=== PATIENT | female | born 1990 | race Caucasian/White ===

== ENCOUNTER 2018-04-11 19:31 | Emergency (ER) | payer OTHER ==
[2018-04-11] MEDS ORDERED: Butorphanol 2 MG/ML SDV IM ONE (19:58)
[2018-04-11] MEDS ORDERED: Promethazine 25 MG/ML SDV IM ONE (19:58)
--- NOTE | 2018-04-11 20:01 | EDM.PDOC ---
ED HPI GENERAL MEDICAL PROBLEM - General Chief Complaint: Headache Stated Complaint: Migraine [id number] Time Seen by Provider: 04/11/18 19:59 Source of Information: Reports: Patient History Limitations: Reports: No Limitations - History of Present Illness INITIAL COMMENTS - FREE TEXT/NARRATIVE: gives long h/o migraines usually Tx with PO Rx but this time not working. been very nauseous and head pounding. 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 - Physical Exam Exam: See Below Exam Limited By: No Limitations General Appearance: Alert, WD/WN, Mild Distress, Other (headache) Eye Exam: Bilateral Eye: PERRL (pupils ER @ 4mm) Ears: Hearing Grossly Normal Throat/Mouth: Normal Voice, No Airway Compromise Head Exam: Atraumatic Neck: Non-Tender, Full Range of Motion Respiratory/Chest: No Respiratory Distress Cardiovascular: Regular Rate, Rhythm GI/Abdominal: Soft, Non-Tender Neuro Exam (Abbreviated): Alert, Oriented, Normal Cognition, Normal Gait, No Motor/Sensory Deficits Psychiatric: Tearful Skin Exam: Warm, Dry, Normal Color Course - Vital Signs Last Recorded V/S: Last Vital Signs Temp 36.9 C 04/11/18 19:50 Pulse 81 04/11/18 19:50 Resp 16 04/11/18 19:50 BP 117/74 04/11/18 19:50 Pulse Ox 100 04/11/18 19:50 - Orders/Labs/Meds Meds: Medications Discontinued Medications Generic Name Dose Route Start Last Admin Trade Name Freq PRN Reason Stop Dose Admin Butorphanol Tartrate 2 mg 04/11/18 19:58 04/11/18 20:04 Stadol IM 04/11/18 19:59 2 mg ONETIME ONE Administration Promethazine HCl 25 mg 04/11/18 19:58 04/11/18 20:07 Phenergan IM 04/11/18 19:59 25 mg ONETIME ONE Administration Departure - Departure Time of Disposition: 20:35 Disposition: Home, Self-Care 01 Condition: Good Clinical Impression: Migraine - Discharge Information Instructions: Recurrent Migraine Headache, [id number] Forms: ED Department Discharge Additional Instructions: 1) rest as much as possible 2) avoid bright lights and loud noises 3) follow up at clinic or recheck as needed
== END 2018-04-11 20:38 | disposition home or self-care (01) ==
LOC: DL.ED 19:31
DX: G43.909 Migraine, unspecified, not intractable, without status migrainosus (principal); Z79.899 Other long term (current) drug therapy
CPT/HCPCS: 96372; 99283; J0595; J2550

== ENCOUNTER 2019-12-22 15:20 | Emergency (ER) | payer OTHER ==
[2019-12-22] MEDS ORDERED: Sodium Chloride 0.9% 1,000 ML IV ONE (15:44)
[2019-12-22] MEDS ORDERED: Ketorolac 30 MG/ML SDV IVPUSH ONE (15:44)
[2019-12-22] MEDS ORDERED: Metoclopramide 10 MG/2 ML SDV IVPUSH ONE (15:45)
--- NOTE | 2019-12-22 15:47 | EDM.PDOC ---
ED HPI GENERAL MEDICAL PROBLEM - General Chief Complaint: Headache Stated Complaint: migrane Time Seen by Provider: 12/22/19 15:40 Source of Information: Reports: Patient History Limitations: Reports: No Limitations - History of Present Illness INITIAL COMMENTS - FREE TEXT/NARRATIVE: This 29 yo female patient reports to the ED with a headache since about 1000 this morning. The patient has taken her migraine medications 2 times with no symptom relief. The patient reports she is feeling nauseated, but has not vomited at this time. 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(s) Forehead Pain Score (Numeric/FACES): 5 - Related Data Allergies Allergy/AdvReac Type Severity Reaction Status Date / Time No Known Allergies Allergy Verified 04/11/18 19:57 Home Meds: Home Meds Cetirizine [ZyrTEC] 10 mg PO DAILY 04/11/18 [History] Rizatriptan Benzoate [Rizatriptan] 10 mg PO DAILY 04/11/18 [History] Past Medical History - Past Health History Medical/Surgical History: Denies Medical/Surgical History Gastrointestinal History: Reports: None Genitourinary History: Reports: Other (See Below) Other Genitourinary History: genital warts Neurological History: Reports: Migraines Psychiatric History: Reports: Anxiety, Depression - Past Surgical History GI Surgical History: Reports: None Social & Family History - Family History Family Medical History: Noncontributory - Caffeine Use Caffeine Use: Reports: Coffee, Soda ED ROS GENERAL - Review of Systems Review Of Systems: Comprehensive ROS is negative, except as noted in HPI. - Physical Exam Exam: See Below Exam Limited By: No Limitations General Appearance: Alert, WD/WN, Moderate Distress, Thin Eye Exam: Bilateral Eye: EOMI, Normal Inspection, PERRL Ears: Normal External Exam, Normal Canal, Hearing Grossly Normal, Normal TMs Nose: Normal Inspection, Normal Mucosa, No Blood Throat/Mouth: Normal Inspection, Normal Lips, Normal Teeth, Normal Gums, Normal Oropharynx, Normal Voice, No Airway Compromise Head Exam: Atraumatic, Normocephalic Neck: Normal Inspection, Supple, Non-Tender, Full Range of Motion Respiratory/Chest: No Respiratory Distress, Lungs Clear, Normal Breath Sounds, No Accessory Muscle Use, Chest Non-Tender Cardiovascular: Normal Peripheral Pulses, Regular Rate, Rhythm, No Edema, No Gallop, No JVD, No Murmur, No Rub GI/Abdominal: Normal Bowel Sounds, Soft, Non-Tender, No Organomegaly, No Distention, No Abnormal Bruit, No Mass (Female) Exam: Deferred Rectal (Female) Exam: Deferred Neuro Exam (Abbreviated): Alert, Oriented, CN II-XII Intact, Normal Cognition, Normal Gait, Normal Reflexes, No Motor/Sensory Deficits Back Exam: Normal Inspection, Full Range of Motion, NT Extremities: Normal Inspection, Normal Range of Motion, Non-Tender, No Pedal Edema, Normal Capillary Refill Psychiatric: Normal Affect, Normal Mood Skin Exam: Warm, Dry, Intact, Normal Color, No Rash Course - Vital Signs Last Recorded V/S: Last Vital Signs Temp 36.7 C 12/22/19 15:25 Pulse 81 12/22/19 15:25 Resp 18 12/22/19 15:25 BP 121/90 12/22/19 15:25 Pulse Ox 99 12/22/19 15:25 - Orders/Labs/Meds Orders: Active Orders 24 hr Category Date Time Status Sodium Chloride 0.9% [Normal Saline] 1,000 ml Med 12/22/19 15:44 Active IV .BOLUS Medication Orders Sodium Chloride (Normal Saline) 1,000 mls @ 999 mls/hr IV .BOLUS ONE Stop: 12/22/19 16:44 Last Admin: 12/22/19 15:58 Dose: 999 mls/hr Meds: Medications Generic Name Dose Route Start Last Admin Trade Name Freq PRN Reason Stop Dose Admin Sodium Chloride 1,000 mls @ 999 mls/hr 12/22/19 15:44 12/22/19 15:58 Normal Saline IV 12/22/19 16:44 999 mls/hr .BOLUS ONE Administration Discontinued Medications Generic Name Dose Route Start Last Admin Trade Name Freq PRN Reason Stop Dose Admin Ketorolac Tromethamine 30 mg 12/22/19 15:44 12/22/19 16:02 Toradol IVPUSH 12/22/19 15:45 30 mg ONETIME ONE Administration Metoclopramide HCl 10 mg 12/22/19 15:45 12/22/19 15:59 Reglan IVPUSH 12/22/19 15:46 10 mg ONETIME ONE Administration Departure - Departure Time of Disposition: 16:36 Disposition: Home, Self-Care 01 Condition: Fair Clinical Impression: Migraine - Discharge Information *PRESCRIPTION DRUG MONITORING PROGRAM REVIEWED*: Not Applicable *COPY OF PRESCRIPTION DRUG MONITORING REPORT IN PATIENT SELINA: Not Applicable Instructions: Migraine Headache, [id number] Forms: ED Department Discharge Care Plan Goals: The patient was advised of the examination and lab results during the visit. The patient was given IV fluids and IV Toradol while in the ED. The patient was encouraged to increase her oral fluid intake over the next 48 hours. The patient may take her prescription medications as directed. If the patient has any additional symptoms or concerns, the patient should either return to the emergency department or visit her primary care facility. Sepsis Event Note - Focused Exam Vital Signs: Vital Signs Temp Pulse Resp BP Pulse Ox 12/22/19 15:25 36.7 C 81 18 121/90 99 Date Exam was Performed: 12/22/19 Time Exam was Performed: 16:36 - My Orders Last 24 Hours: My Active Orders 12/22/19 15:44 Sodium Chloride 0.9% [Normal Saline] 1,000 ml IV .BOLUS - Assessment/Plan Last 24 Hours: My Active Orders 12/22/19 15:44 Sodium Chloride 0.9% [Normal Saline] 1,000 ml IV .BOLUS
== END 2019-12-22 16:45 | disposition home or self-care (01) ==
LOC: DL.ED 15:20
DX: G43.909 Migraine, unspecified, not intractable, without status migrainosus (principal)
CPT/HCPCS: 96374; 96375; 99284; J1885; J2765; J7030; 99283